=== PATIENT | female | born 1970 | race Caucasian/White ===

== ENCOUNTER → 2017-05-09 | Outpatient (CLI) | payer MEDICARE ==
--- NOTE | 2017-05-10 10:08 | MM ---
Reason for exam: screening (asymptomatic). Last mammogram was performed 2 years and 8 months ago. History: Patient is nulliparous. Family history of breast cancer in mother. Taking hormonal contraceptives for 25 years beginning at age 16. Physical Findings: A clinical breast exam by your physician is recommended on an annual basis and results should be correlated with mammographic findings. MG 3D Screening Mammo W/Cad Bilateral CC and MLO view(s) were taken. Prior study comparison: September 09, 2014, bilateral MG diagnostic mammo w CAD ZAYRA. February 23, 2012, bilateral digital screening mammo w/CAD. There are scattered fibroglandular densities. No significant changes when compared with prior studies. ASSESSMENT: Benign, BI-RAD 2 RECOMMENDATION: Routine screening mammogram of both breasts in 1 year.
== END | disposition home or self-care (01) ==
LOC: RADMAMWWP 15:22
PROVIDERS: ATTEND Family Medicine
DX: Z12.31 Encounter for screening mammogram for malignant neoplasm of breast (principal)
CPT/HCPCS: 77063; G0202

== ENCOUNTER → 2018-05-21 | Outpatient (CLI) | payer MEDICARE ==
--- NOTE | 2018-05-22 14:10 | MM ---
Reason for exam: screening (asymptomatic). Last mammogram was performed 1 year ago. History: Patient is nulliparous. Family history of breast cancer in mother. Taking hormonal contraceptives for 25 years beginning at age 16. Physical Findings: A clinical breast exam by your physician is recommended on an annual basis and results should be correlated with mammographic findings. MG Screening Mammo w CAD Bilateral CC and MLO view(s) were taken. Prior study comparison: May 09, 2017, bilateral MG 3d screening mammo w/cad. September 09, 2014, bilateral MG diagnostic mammo w CAD ZAYRA. There are scattered fibroglandular densities. No significant changes when compared with prior studies. ASSESSMENT: Benign, BI-RAD 2 RECOMMENDATION: Routine screening mammogram of both breasts in 1 year.
== END ==
LOC: RADMAMWWP 16:08
PROVIDERS: ATTEND Family Medicine
DX: Z12.31 Encounter for screening mammogram for malignant neoplasm of breast (principal)
CPT/HCPCS: 77067

== ENCOUNTER 2021-01-03 14:32 | Inpatient (IN) | payer MEDICARE ==
[2021-01-03 14:40] LABS: Glucose,Whole Blood 316 mg/dL (75-99)
[2021-01-03 14:43] VITALS: TEMP 96.9
[2021-01-03] MEDS ORDERED: SODIUM CHLORIDE 0.9% 1,000 ML IV STA (14:44)
[2021-01-03] MEDS ORDERED: VANCOMYCIN IV PER PHARMACY 1 EACH MISC MISCELLANE PRN (14:51)
[2021-01-03] MEDS ORDERED: PIPERACILLIN-TAZOBACTAM 3.375 GM in SODIUM CHLORIDE 0.9% 100 ML IVPB STA (14:51)
--- NOTE | 2021-01-03 14:52 | XR ---
EXAMINATION TYPE: XR chest 1V DATE OF EXAM: 01/03/2021 COMPARISON: 01/06/2015 HISTORY: Shortness of breath TECHNIQUE: Single frontal view of the chest is obtained. FINDINGS: Diffuse interstitial pattern with patchy areas of bilateral consolidation more pronounced on the left. Tiny bilateral effusion suspected. No pneumothorax. Heart size normal. IMPRESSION: 1. Diffuse pleural-parenchymal changes correlate for diffuse pneumonia, ARDS or pulmonary edema.
--- NOTE | 2021-01-03 14:53 | ED ---
SOB HPI - General Source: patient, EMS, RN notes reviewed Mode of arrival: EMS Limitations: no limitations, altered mental status (slow to respond, difficulty answering questions) - History of Present Illness MD Complaint: shortness of breath -: days(s) (2) Known History Of: diabetes, other (htn, GERD) Treatments Prior to Arrival: oxygen (iv) - Related Data Home Oxygen Therapy: No <Wu Crenshaw - Last Filed: 01/03/21 15:39> <Magaly Dinero - Last Filed: 01/03/21 17:34> - General Chief Complaint: Shortness of Breath Stated Complaint: High Blood Sugar Time Seen by Provider: 01/03/21 14:33 - History of Present Illness Initial Comments: 50-year-old white female patient brought in by EMS from [email or web address] with complaints of shortness of breath for 2 days. Patient to Completing 44, oxygen saturation 86% on room air, heart rate 129, blood pressure 131/94, patient with cyanosis to bilateral fingers. Patient was slow to answer questions, states short of breath for 2 days. Patient states fiancee took her to [facility] today. EMS states glucose was high on the monitor at [facility] and also high on their machine. (Wu Crenshaw) - Related Data Home Medications Medication Instructions Recorded Confirmed ARIPiprazole [Abilify] 10 mg PO DAILY 12/10/14 01/05/15 DULoxetine HCL [Cymbalta] 60 mg PO BID 12/10/14 01/05/15 Loratadine [Claritin] 10 mg PO DAILY 12/10/14 01/05/15 Omeprazole [PriLOSEC] 20 mg PO AC-SUPPER 12/10/14 01/05/15 Simvastatin [Zocor] 40 mg PO HS 12/10/14 01/05/15 atenoloL [Tenormin] 25 mg PO DAILY 12/10/14 01/05/15 Levothyroxine Sodium [Synthroid] 25 mcg PO DAILY 01/05/15 01/05/15 Multivitamin with Iron [Daily 1 tab PO DAILY 01/05/15 01/05/15 Multivitamin with Iron] Previous Rx's Medication Instructions Recorded Cyclobenzaprine [Flexeril] 10 mg PO TID #14 tab 12/10/14 Ibuprofen [Motrin] 800 mg PO Q6HR PRN #20 tab 12/10/14 Allergies Allergy/AdvReac Type Severity Reaction Status Date / Time Sulfa (Sulfonamide Allergy Rash/Hives, Verified 01/05/15 20:45 Antibiotics) ITCHING sulfasalazine Allergy RASH/HIVES, Verified 01/05/15 20:45 ITCHING Review of Systems ROS Other: All systems not noted in ROS Statement are negative. <Wu Crenshaw - Last Filed: 01/03/21 15:39> ROS Other: All systems not noted in ROS Statement are negative. <Magaly Dinero P - Last Filed: 01/03/21 17:34> ROS Statement: Those systems with pertinent positive or pertinent negative responses have been documented in the HPI. Past Medical History Past Medical History: Diabetes Mellitus, GERD/Reflux, Hyperlipidemia, Hypertens ion, Thyroid Disorder History of Any Multi-Drug Resistant Organisms: None Reported Additional Past Surgical History / Comment(s): bunions removed Past Anesthesia/Blood Transfusion Reactions: No Reported Reaction Past Psychological History: Anxiety, Bipolar, Depression Smoking Status: Never smoker Past Alcohol Use History: None Reported Past Drug Use History: None Reported - Past Family History Mother Family Medical History: Hypertension Additional Family Medical History / Comment(s): breast ca Father Additional Family Medical History / Comment(s): "chest cancer" <Wu Crenshaw - Last Filed: 01/03/21 15:39> General Exam Limitations: no limitations, altered mental status (slow to respond) General appearance: alert, lethargic, in distress Head exam: Present: atraumatic, normocephalic, normal inspection Eye exam: Present: normal appearance, EOMI. Absent: conjunctival injection, periorbital swelling, periorbital tenderness ENT exam: Present: other (lips cracked and bleeding, dried blood noted on lower right teeth) Respiratory exam: Present: respiratory distress, rhonchi, decreased breath sounds. Absent: normal lung sounds bilaterally, wheezes, chest wall tenderness, prolonged expiratory (RR 44) Cardiovascular Exam: Present: tachycardia, normal heart sounds. Absent: JVD GI/Abdominal exam: Present: soft, normal bowel sounds. Absent: distended, tenderness, guarding, rebound, rigid Extremities exam: Present: other (radial pulses present bilaterally). Absent: normal capillary refill (fingers of both hands cyanotic) Back exam: Present: normal inspection. Absent: tenderness, CVA tenderness (R), CVA tenderness (L), rash noted Neurological exam: Present: alert Psychiatric exam: Present: normal affect, normal mood. Absent: agitated, anxious, flat affect, manic Skin exam: Present: warm, dry, cyanosis (fingers b/l ), pallor. Absent: normal color, rash, diaphoretic <Wu Crenshaw - Last Filed: 01/03/21 15:39> Course - Reevaluation(s) Time: 15:04 <Wu Crenshaw - Last Filed: 01/03/21 15:39> Vital Signs 01/03/21 01/03/21 14:33 16:24 Temperature 96.9 F L Pulse Rate 129 H 118 H Respiratory 28 H 30 H Rate Blood Pressure 131/94 142/98 O2 Sat by Pulse 86 L 95 Oximetry - Reevaluation(s) Reevaluation #1: 01/03/21 15:04 Dr. Dinero at bedside, patient placed on BiPAP, oxygen saturation is increased to 96%. (Wu Crenshaw) Medical Decision Making - Lab Data Result diagrams: 01/03/21 14:55 01/03/21 14:55 - EKG Data -: EKG Interpreted by Me (also Dr Dinero) EKG shows normal: sinus rhythm, intervals (Sinus tachycardia with a rate of 126, MN interval 0.124, QRS 0.76, QTC 0.43) <Wu Crenshaw - Last Filed: 01/03/21 15:39> - Lab Data Result diagrams: 01/03/21 14:55 01/03/21 14:55 <Magaly Dinero - Last Filed: 01/03/21 17:34> - Medical Decision Making Single view of the chest shows diffuse pleural parenchymal changes with diffuse pneumonia, ards or pulmonary edema. Lactic acid 3.2 patient received 1 L bolus 0.9 normal saline. Potassium 5.0, creatinine 1.34 compared to a creatinine of 0.78 on 01/06/2015 showing acute kidney injury today. WBC count of 7.6 with no bands. (Wu Crenshaw) patient seen and evaluated, history is limited due to patient's respiratory distress. Patient was placed on BiPAP. Oxygenation improved. Patient is COVID positive. Labs are consistent with COVID including elevated d-dimer. Due to being on BiPAP at this time patient not stable for computed tomography scan we will treat elevated d-dimer with IV Lovenox. She will receive Decadron 4 COVID 19. Patient will be admitted Patient care was discussed with Dr. Yeh who accepts with admission consult pulmonology (Magaly Dinero) - Lab Data Lab Results 01/03/21 01/03/21 01/03/21 Range/Units 14:38 14:47 14:55 WBC 7.6 (3.8-10.6) k/uL RBC 4.65 (3.80-5.40) m/uL Hgb 15.3 (11.4-16.0) gm/dL Hct 44.3 (34.0-46.0) % MCV 95.3 (80.0-100.0) fL MCH 32.9 (25.0-35.0) pg MCHC 34.5 (31.0-37.0) g/dL RDW 13.1 (11.5-15.5) % Plt Count 106 L (150-450) k/uL MPV 8.4 Neutrophils % 89 % Lymphocytes % 6 % Monocytes % 2 % Eosinophils % 0 % Basophils % 0 % Neutrophils # 6.8 (1.3-7.7) k/uL Lymphocytes # 0.5 L (1.0-4.8) k/uL Monocytes # 0.2 (0-1.0) k/uL Eosinophils # 0.0 (0-0.7) k/uL Basophils # 0.0 (0-0.2) k/uL PT (9.0-12.0) sec INR (<1.2) APTT (22.0-30.0) sec D-Dimer (<0.60) mg/L FEU Sodium (137-145) mmol/L Potassium (3.5-5.1) mmol/L Chloride (98-107) mmol/L Carbon Dioxide (22-30) mmol/L Anion Gap mmol/L BUN (7-17) mg/dL Creatinine (0.52-1.04) mg/dL Est GFR (CKD-EPI)AfAm (>60 ml/min/1.73 sqM) Est GFR (CKD-EPI)NonAf (>60 ml/min/1.73 sqM) Glucose (74-99) mg/dL POC Glucose (mg/dL) 316 H (75-99) mg/dL POC Glu Manager Country ID Kathrin Henning Lactic Ac Sepsis Rflx Plasma Lactic Acid Rigoberto (0.7-2.0) mmol/L Calcium (8.4-10.2) mg/dL Magnesium (1.6-2.3) mg/dL Total Bilirubin (0.2-1.3) mg/dL AST (14-36) U/L ALT (4-34) U/L Alkaline Phosphatase (38-126) U/L Troponin I (0.000-0.034) ng/mL NT-Pro-B Natriuret Pep pg/mL Total Protein (6.3-8.2) g/dL Albumin (3.5-5.0) g/dL Coronavirus (PCR) Detected A (Not Detectd) 01/03/21 01/03/21 01/03/21 Range/Units 14:55 14:55 14:55 WBC (3.8-10.6) k/uL RBC (3.80-5.40) m/uL Hgb (11.4-16.0) gm/dL Hct (34.0-46.0) % MCV (80.0-100.0) fL MCH (25.0-35.0) pg MCHC (31.0-37.0) g/dL RDW (11.5-15.5) % Plt Count (150-450) k/uL MPV Neutrophils % % Lymphocytes % % Monocytes % % Eosinophils % % Basophils % % Neutrophils # (1.3-7.7) k/uL Lymphocytes # (1.0-4.8) k/uL Monocytes # (0-1.0) k/uL Eosinophils # (0-0.7) k/uL Basophils # (0-0.2) k/uL PT (9.0-12.0) sec INR (<1.2) APTT (22.0-30.0) sec D-Dimer (<0.60) mg/L FEU Sodium 136 L (137-145) mmol/L Potassium 5.0 (3.5-5.1) mmol/L Chloride 103 (98-107) mmol/L Carbon Dioxide 20 L (22-30) mmol/L Anion Gap 13 mmol/L BUN 33 H (7-17) mg/dL Creatinine 1.34 H (0.52-1.04) mg/dL Est GFR (CKD-EPI)AfAm 54 (>60 ml/min/1.73 sqM) Est GFR (CKD-EPI)NonAf 47 (>60 ml/min/1.73 sqM) Glucose 560 H* (74-99) mg/dL POC Glucose (mg/dL) (75-99) mg/dL POC Glu Manager Country ID Lactic Ac Sepsis Rflx Plasma Lactic Acid Rigoberto 3.2 H* (0.7-2.0) mmol/L Calcium 8.3 L (8.4-10.2) mg/dL Magnesium 1.9 (1.6-2.3) mg/dL Total Bilirubin 0.6 (0.2-1.3) mg/dL AST 43 H (14-36) U/L ALT 26 (4-34) U/L Alkaline Phosphatase 166 H (38-126) U/L Troponin I 0.014 (0.000-0.034) ng/mL NT-Pro-B Natriuret Pep pg/mL Total Protein 6.4 (6.3-8.2) g/dL Albumin 3.2 L (3.5-5.0) g/dL Coronavirus (PCR) (Not Detectd) 01/03/21 01/03/21 01/03/21 Range/Units 14:55 15:28 15:43 WBC (3.8-10.6) k/uL RBC (3.80-5.40) m/uL Hgb (11.4-16.0) gm/dL Hct (34.0-46.0) % MCV (80.0-100.0) fL MCH (25.0-35.0) pg MCHC (31.0-37.0) g/dL RDW (11.5-15.5) % Plt Count (150-450) k/uL MPV Neutrophils % % Lymphocytes % % Monocytes % % Eosinophils % % Basophils % % Neutrophils # (1.3-7.7) k/uL Lymphocytes # (1.0-4.8) k/uL Monocytes # (0-1.0) k/uL Eosinophils # (0-0.7) k/uL Basophils # (0-0.2) k/uL PT 10.0 (9.0-12.0) sec INR 0.9 (<1.2) APTT 19.4 L (22.0-30.0) sec D-Dimer >34.10 H (<0.60) mg/L FEU Sodium (137-145) mmol/L Potassium (3.5-5.1) mmol/L Chloride (98-107) mmol/L Carbon Dioxide (22-30) mmol/L Anion Gap mmol/L BUN (7-17) mg/dL Creatinine (0.52-1.04) mg/dL Est GFR (CKD-EPI)AfAm (>60 ml/min/1.73 sqM) Est GFR (CKD-EPI)NonAf (>60 ml/min/1.73 sqM) Glucose (74-99) mg/dL POC Glucose (mg/dL) (75-99) mg/dL POC Glu Manager Country ID Lactic Ac Sepsis Rflx Y Plasma Lactic Acid Rigoberto (0.7-2.0) mmol/L Calcium (8.4-10.2) mg/dL Magnesium (1.6-2.3) mg/dL Total Bilirubin (0.2-1.3) mg/dL AST (14-36) U/L ALT (4-34) U/L Alkaline Phosphatase (38-126) U/L Troponin I (0.000-0.034) ng/mL NT-Pro-B Natriuret Pep 148 pg/mL Total Protein (6.3-8.2) g/dL Albumin (3.5-5.0) g/dL Coronavirus (PCR) (Not Detectd) Disposition <Wu Crenshaw - Last Filed: 01/03/21 15:39> Is patient prescribed a controlled substance at d/c from ED?: No <Magaly Dinero - Last Filed: 01/03/21 17:34> Clinical Impression: COVID-19 Disposition: ADMITTED IP TO THIS HOSP Condition: Serious Referrals: Shamar Jimenez DO [Primary Care Provider] - 1-2 days
[2021-01-03] MEDS ORDERED: VANCOMYCIN 1,250 MG in SODIUM CHLORIDE 0.9% 250 ML IVPB STA (14:55)
[2021-01-03 15:25] LABS: Albumin 3.2 g/dL (3.5-5.0); Calcium 8.3 mg/dL (8.4-10.2); Magnesium 1.9 mg/dL (1.6-2.3); Total Bilirubin 0.6 mg/dL (0.2-1.3); Total Protein 6.4 g/dL (6.3-8.2)
[2021-01-03 15:36] LABS: Basophils % (A) 0 %; Eosinophils % (A) 0 %; HCT 44.3 % (34.0-46.0); HGB 15.3 gm/dL (11.4-16.0); Lymphocytes # (A) 0.5 k/uL (1.0-4.8); Lymphocytes % (A) 6 %; MCH 32.9 pg (25.0-35.0); MCHC 34.5 g/dL (31.0-37.0); MCV 95.3 fL (80.0-100.0); Mean Platelet Volume 8.4; Monocytes # (A) 0.2 k/uL (0-1.0); Monocytes % (A) 2 %; Neutrophils # (A) 6.8 k/uL (1.3-7.7); Neutrophils % (A) 89 %; Platelet Count 106 k/uL (150-450); RBC 4.65 m/uL (3.80-5.40); RDW 13.1 % (11.5-15.5); WBC 7.6 k/uL (3.8-10.6)
[2021-01-03] MEDS ORDERED: SODIUM CHLORIDE 0.9% 1,000 ML IV ONE (16:07)
[2021-01-03] MEDS ORDERED: INSULIN REGULAR 100 UNIT/ML VIAL (IV) SQ ONE (16:12)
[2021-01-03 16:51] LABS: INR 0.9 (<1.2)
[2021-01-03 17:00] LABS: Partial Thromboplastin Time 19.4 sec (22.0-30.0)
[2021-01-03] MEDS: SODIUM CHLORIDE 0.9% 1,000 ML IV SCH (17:22)
[2021-01-03] MEDS ORDERED: ACETAMINOPHEN TAB 325 MG TAB PO PRN (17:27)
[2021-01-03] MEDS ORDERED: NALOXONE 0.4 MG/ML 1 ML VIAL IV PRN (17:27)
[2021-01-03] MEDS ORDERED: ONDANSETRON 4 MG/2 ML VIAL IVP PRN (17:27)
[2021-01-03] MEDS ORDERED: DEXAMETHASONE SOD PHOSPHATE 10 MG/ML 1 ML VIAL IV SCH (17:30)
[2021-01-03] MEDS ORDERED: INSULIN REGULAR BOLUS (FROM DRIP BAG) IV ONE (19:53)
[2021-01-03] MEDS ORDERED: INSULIN REGULAR 100 UNIT in SODIUM CHLORIDE 0.9% 100 ML IV SCH (20:00)
[2021-01-03 20:14] LABS: Glucose,Whole Blood 239 mg/dL (75-99)
[2021-01-03] MEDS ORDERED: INSULIN ASPART (NovoLOG) 100 UNIT/ML VIAL SQ SCH (21:00)
[2021-01-03] MEDS ORDERED: DULoxetine HCL 60 MG CAPSULE.DR PO SCH (21:00)
[2021-01-03] MEDS ORDERED: ENOXAPARIN 80 MG/0.8 ML SYRINGE SQ SCH (21:00)
[2021-01-03] MEDS ORDERED: ATORVASTATIN 20 MG TAB PO SCH (21:00)
[2021-01-03] MEDS ORDERED: NON FORMULARY DRUG (Omeprazole [Prilosec] 20 MG Capsule.Dr) PO SCH (21:00)
[2021-01-03 21:37] LABS: Glucose,Whole Blood 187 mg/dL (75-99)
[2021-01-04] MEDS ORDERED: LORazepam 2 MG/ML INJ IV STA (01:33)
[2021-01-04] MEDS ORDERED: ALBUTEROL HFA INHALER INHALATION STA (01:42)
[2021-01-04 02:06] LABS: ABG Base Excess -3.3 mmol/L; ABG HCO3 24 mmol/L (21-25); ABG PCO2 59 mmHg (35-45); ABG PH 7.22 (7.35-7.45); ABG TCO2 26 mmol/L (19-24); Allen Test Performed? Yes
[2021-01-04] MEDS: SODIUM CHLORIDE 0.9% 1,000 ML IV SCH (02:09)
[2021-01-04 02:21] LABS: ABG PO2 43 mmHg (83-108)
[2021-01-04] MEDS ORDERED: MIDAZOLAM 1 MG/ML 5 ML VIAL IV STA ×3 (02:44→03:11)
[2021-01-04] MEDS ORDERED: SUCCINYLCHOLINE CHLORIDE VIAL 200 MG/10 ML VIAL IV STA (02:46)
--- NOTE | 2021-01-04 02:47 | ED ---
Medical Decision Making - Medical Decision Making 50 female to the ER for evaluation patient has severe coronavirus with need to be intubated secondary significant deterioration mental status and increased respiratory rate work of breathing, patient needed to be intubated for multiple reasons, patient was intubated successfully - Lab Data Result diagrams: 01/03/21 14:55 01/03/21 14:55 Lab Results 01/03/21 01/03/21 01/03/21 Range/Units 14:38 14:47 14:55 WBC 7.6 (3.8-10.6) k/uL RBC 4.65 (3.80-5.40) m/uL Hgb 15.3 (11.4-16.0) gm/dL Hct 44.3 (34.0-46.0) % MCV 95.3 (80.0-100.0) fL MCH 32.9 (25.0-35.0) pg MCHC 34.5 (31.0-37.0) g/dL RDW 13.1 (11.5-15.5) % Plt Count 106 L (150-450) k/uL MPV 8.4 Neutrophils % 89 % Lymphocytes % 6 % Monocytes % 2 % Eosinophils % 0 % Basophils % 0 % Neutrophils # 6.8 (1.3-7.7) k/uL Lymphocytes # 0.5 L (1.0-4.8) k/uL Monocytes # 0.2 (0-1.0) k/uL Eosinophils # 0.0 (0-0.7) k/uL Basophils # 0.0 (0-0.2) k/uL PT (9.0-12.0) sec INR (<1.2) APTT (22.0-30.0) sec D-Dimer (<0.60) mg/L FEU Sodium (137-145) mmol/L Potassium (3.5-5.1) mmol/L Chloride (98-107) mmol/L Carbon Dioxide (22-30) mmol/L Anion Gap mmol/L BUN (7-17) mg/dL Creatinine (0.52-1.04) mg/dL Est GFR (CKD-EPI)AfAm (>60 ml/min/1.73 sqM) Est GFR (CKD-EPI)NonAf (>60 ml/min/1.73 sqM) Glucose (74-99) mg/dL POC Glucose (mg/dL) 316 H (75-99) mg/dL POC Glu Elastic Tape Inserter ID Kathrin Henning Lactic Ac Sepsis Rflx Plasma Lactic Acid Rigoberto (0.7-2.0) mmol/L Calcium (8.4-10.2) mg/dL Magnesium (1.6-2.3) mg/dL Total Bilirubin (0.2-1.3) mg/dL AST (14-36) U/L ALT (4-34) U/L Alkaline Phosphatase (38-126) U/L Troponin I (0.000-0.034) ng/mL NT-Pro-B Natriuret Pep pg/mL Total Protein (6.3-8.2) g/dL Albumin (3.5-5.0) g/dL Coronavirus (PCR) Detected A (Not Detectd) 01/03/21 01/03/21 01/03/21 Range/Units 14:55 14:55 14:55 WBC (3.8-10.6) k/uL RBC (3.80-5.40) m/uL Hgb (11.4-16.0) gm/dL Hct (34.0-46.0) % MCV (80.0-100.0) fL MCH (25.0-35.0) pg MCHC (31.0-37.0) g/dL RDW (11.5-15.5) % Plt Count (150-450) k/uL MPV Neutrophils % % Lymphocytes % % Monocytes % % Eosinophils % % Basophils % % Neutrophils # (1.3-7.7) k/uL Lymphocytes # (1.0-4.8) k/uL Monocytes # (0-1.0) k/uL Eosinophils # (0-0.7) k/uL Basophils # (0-0.2) k/uL PT (9.0-12.0) sec INR (<1.2) APTT (22.0-30.0) sec D-Dimer (<0.60) mg/L FEU Sodium 136 L (137-145) mmol/L Potassium 5.0 (3.5-5.1) mmol/L Chloride 103 (98-107) mmol/L Carbon Dioxide 20 L (22-30) mmol/L Anion Gap 13 mmol/L BUN 33 H (7-17) mg/dL Creatinine 1.34 H (0.52-1.04) mg/dL Est GFR (CKD-EPI)AfAm 54 (>60 ml/min/1.73 sqM) Est GFR (CKD-EPI)NonAf 47 (>60 ml/min/1.73 sqM) Glucose 560 H* (74-99) mg/dL POC Glucose (mg/dL) (75-99) mg/dL POC Glu Elastic Tape Inserter ID Lactic Ac Sepsis Rflx Plasma Lactic Acid Rigoberto 3.2 H* (0.7-2.0) mmol/L Calcium 8.3 L (8.4-10.2) mg/dL Magnesium 1.9 (1.6-2.3) mg/dL Total Bilirubin 0.6 (0.2-1.3) mg/dL AST 43 H (14-36) U/L ALT 26 (4-34) U/L Alkaline Phosphatase 166 H (38-126) U/L Troponin I 0.014 (0.000-0.034) ng/mL NT-Pro-B Natriuret Pep pg/mL Total Protein 6.4 (6.3-8.2) g/dL Albumin 3.2 L (3.5-5.0) g/dL Coronavirus (PCR) (Not Detectd) 01/03/21 01/03/21 01/03/21 Range/Units 14:55 15:28 15:43 WBC (3.8-10.6) k/uL RBC (3.80-5.40) m/uL Hgb (11.4-16.0) gm/dL Hct (34.0-46.0) % MCV (80.0-100.0) fL MCH (25.0-35.0) pg MCHC (31.0-37.0) g/dL RDW (11.5-15.5) % Plt Count (150-450) k/uL MPV Neutrophils % % Lymphocytes % % Monocytes % % Eosinophils % % Basophils % % Neutrophils # (1.3-7.7) k/uL Lymphocytes # (1.0-4.8) k/uL Monocytes # (0-1.0) k/uL Eosinophils # (0-0.7) k/uL Basophils # (0-0.2) k/uL PT 10.0 (9.0-12.0) sec INR 0.9 (<1.2) APTT 19.4 L (22.0-30.0) sec D-Dimer >34.10 H (<0.60) mg/L FEU Sodium (137-145) mmol/L Potassium (3.5-5.1) mmol/L Chloride (98-107) mmol/L Carbon Dioxide (22-30) mmol/L Anion Gap mmol/L BUN (7-17) mg/dL Creatinine (0.52-1.04) mg/dL Est GFR (CKD-EPI)AfAm (>60 ml/min/1.73 sqM) Est GFR (CKD-EPI)NonAf (>60 ml/min/1.73 sqM) Glucose (74-99) mg/dL POC Glucose (mg/dL) (75-99) mg/dL POC Glu Elastic Tape Inserter ID Lactic Ac Sepsis Rflx Y Plasma Lactic Acid Rigoberto (0.7-2.0) mmol/L Calcium (8.4-10.2) mg/dL Magnesium (1.6-2.3) mg/dL Total Bilirubin (0.2-1.3) mg/dL AST (14-36) U/L ALT (4-34) U/L Alkaline Phosphatase (38-126) U/L Troponin I (0.000-0.034) ng/mL NT-Pro-B Natriuret Pep 148 pg/mL Total Protein (6.3-8.2) g/dL Albumin (3.5-5.0) g/dL Coronavirus (PCR) (Not Detectd) - Radiology Data Radiology results: report reviewed (CXR is positive for ET tube), image reviewed Critical Care Time Critical Care Time: Yes Total Critical Care Time: 65 Disposition Clinical Impression: COVID-19, Acute respiratory failure, Hypoxia, Pneumonia due to coronavirus disease 2019, ARDS (adult respiratory distress syndrome) Disposition: ADMITTED IP TO THIS HOSP Condition: Critical Is patient prescribed a controlled substance at d/c from ED?: No
--- NOTE | 2021-01-04 03:07 | XR ---
EXAM: XR Chest, 1 View CLINICAL HISTORY: ITS.REASON XR Reason: placement TECHNIQUE: Frontal view of the chest. COMPARISON: 01/03/21 1447 FINDINGS: Lungs: Worsening bilateral opacities. Pleural space: Small bilateral pleural effusions. No pneumothorax. Heart: Not well evaluated. Mediastinum: Not well evaluated. Bones/joints: No acute osseous abnormality. Tubes, lines and devices: Endotracheal tube tip projects approximately 1.9 cm above the casper. IMPRESSION: 1. Endotracheal tube tip projects approximately 1.9 cm above the casper. 2. Worsening bilateral opacities. 3. Small bilateral pleural effusions. No pneumothorax.
[2021-01-04 03:08] VITALS: BP 94/69
[2021-01-04] MEDS ORDERED: fentaNYL (PF) 50 MCG/ML 2 ML AMP IVP PRN (03:11)
[2021-01-04] MEDS ORDERED: fentaNYL (PF) 1,000 MCG in SODIUM CHLORIDE 0.9% 80 ML IV SCH (03:15)
[2021-01-04] MEDS ORDERED: MIDAZOLAM HCL 50 MG in SODIUM CHLORIDE 0.9% 40 ML IV SCH (03:15)
[2021-01-04 03:24] VITALS: PULSE 80; RESP 26
[2021-01-04] MEDS ORDERED: SODIUM BICARB 8.4% 50 ML SYR (1 MEQ/ML) ONE (03:30)
[2021-01-04] MEDS ORDERED: EPINEPHrine 10 ML SYRINGE (0.1 MG/ML) ONE (03:30)
[2021-01-04] MEDS ORDERED: ATROPINE SULFATE 0.1 MG/ML 10ML SYRINGE ONE (03:30)
--- NOTE | 2021-01-04 03:38 | XR ---
EXAM: XR Chest, 1 View CLINICAL HISTORY: placement TECHNIQUE: Frontal view of the chest. COMPARISON: No relevant prior studies available. FINDINGS: Lungs: Persistent diffuse bilateral opacities. Pleural space: Small bilateral pleural effusions. No pneumothorax. Heart: Stable. Mediastinum: Stable. Bones/joints: No acute osseous abnormality. Tubes, lines and devices: Esophagogastric tube tip projects over the proximal stomach, its sidehole projects over the distal thoracic esophagus. Endotracheal tube tip projects approximately 2.7 cm above the casper. IMPRESSION: 1. Esophagogastric tube tip projects over the proximal stomach, its sidehole projects over the distal thoracic esophagus. Consider advancement by 10 cm and repeat abdominal radiograph to confirm tube position, prior to use. 2. Endotracheal tube tip projects approximately 2.7 cm above the casper. No pneumothorax.
[2021-01-04 03:48] LABS: Glucose,Whole Blood 271 mg/dL (75-99)
--- NOTE | 2021-01-04 06:01 | P.EN ---
code blue activated for cardiopulmonary arrest PEA CPR initiated following ACLS protocol patient was having brief ROSC but very short lived for about 2 min at a time and then she bradycardia and loses pulse. she was given multiple doses of epi, bicarb. then was started on epi drip at 10 mcg / min IV. intubated. in total patient was coded for about 40 minutes , continued to have PEA, no shockable rhythm identified. patient eventually . please refer to code blue documentation for full details of events. patient has dilated pupils , no corneal reflex, no audible heart sounds. I called patient bret. who arrived to the hospital , I met with him in the family room , updated him and answered all questions primary team paged, await call back 50 minutes spent in providing critical care service
[2021-01-04] MEDS ORDERED: INSULIN ASPART (NovoLOG) 100 UNIT/ML VIAL SQ SCH (07:30)
[2021-01-04] MEDS ORDERED: PANTOPRAZOLE 40 MG/10 ML VIAL IV SCH (09:00)
[2021-01-04] MEDS ORDERED: ARIPiprazole 10 MG TAB PO SCH (09:00)
[2021-01-04] MEDS ORDERED: lisinopriL 5 MG TAB PO SCH (09:00)
[2021-01-04] MEDS ORDERED: EZETIMIBE 10 MG TAB PO SCH (09:00)
[2021-01-04] MEDS ORDERED: VANCOMYCIN 1,250 MG in SODIUM CHLORIDE 0.9% 250 ML IVPB SCH (09:00)
--- NOTE | 2021-01-06 23:38 | P.HPIM ---
History of Present Illness H&P Date: 01/03/21 Chief Complaint: Short of breath Patient was admitted from the ER for shortness of breath. Diagnoses of: COVID 19 pneumonia. Patient requiring BiPAP. From ER doctor Sohail was consulted. Nurse had called me the day that patient was still requiring BiPAP short of breath. Told him to contact Dr. Sauceda from critical care because of respiratory compromise. Later the patient had a respiratory arrest and succumbed to the same. Past Medical History Past Medical History: Diabetes Mellitus, GERD/Reflux, Hyperlipidemia, Hypertension, Thyroid Disorder History of Any Multi-Drug Resistant Organisms: None Reported Additional Past Surgical History / Comment(s): bunions removed Past Anesthesia/Blood Transfusion Reactions: No Reported Reaction Past Psychological History: Anxiety, Bipolar, Depression Smoking Status: Never smoker Past Alcohol Use History: None Reported Past Drug Use History: None Reported - Past Family History Mother Family Medical History: Hypertension Additional Family Medical History / Comment(s): breast ca Father Additional Family Medical History / Comment(s): "chest cancer" Medications and Allergies Home Medications Medication Instructions Recorded Confirmed Type ARIPiprazole [Abilify] 10 mg PO DAILY 12/10/14 01/03/21 History DULoxetine HCL [Cymbalta] 60 mg PO BID 12/10/14 01/03/21 History Omeprazole [PriLOSEC] 20 mg PO BID 12/10/14 01/03/21 History Simvastatin [Zocor] 40 mg PO HS 12/10/14 01/03/21 History Ezetimibe [Zetia] 10 mg PO DAILY 01/03/21 01/03/21 History Norgestimate-Ethinyl Estradiol 1 tab PO DAILY 01/03/21 01/03/21 History [Tri-Sprintec Tablet] lisinopriL [Zestril] 5 mg PO DAILY 01/03/21 01/03/21 History metFORMIN HCL ER [Glucophage Xr] 500 mg PO DAILY 01/03/21 01/03/21 History Allergies Allergy/AdvReac Type Severity Reaction Status Date / Time Sulfa (Sulfonamide Allergy Rash/Hives, Verified 01/03/21 17:50 Antibiotics) ITCHING sulfasalazine Allergy RASH/HIVES, Verified 01/03/21 17:50 ITCHING Results CBC & Chem 7: 01/03/21 14:55 01/03/21 14:55 Labs: Microbiology - Last 24 Hours (Table) 01/03/21 14:51 Blood Culture - Preliminary Blood No Growth after 72 hours
--- NOTE | 2021-01-06 23:41 | P.DS ---
Providers Date of admission: 01/03/21 17:27 Expected date of discharge: 01/04/21 (Patient ) Attending physician: Colin Yeh Consults: 01/03/21 17:28 Consult Physician Urgent Consulting Provider: Triston Sauceda Consult Reason/Comments: COVID on bipap Do you want consulting provider notified?: Already Contacted Primary care physician: Shamar Jimenez [facility] Course: Chief Complaint: Short of breath Patient was admitted from the ER for shortness of breath. Diagnoses of: COVID 19 pneumonia. Patient requiring BiPAP. From ER doctor Sohail was consulted. Nurse had called me the day that patient was still requiring BiPAP short of breath. Told him to contact Dr. Sauceda from critical care because of respiratory compromise. Patient was not seen by me.(Hospital was all full with overflowing/holding patients in the ER.) Later the patient had a respiratory arrest and succumbed to the same. Cause of : COVID 19 pneumonia Plan - Discharge Summary New Discharge Prescriptions: No Action Simvastatin [Zocor] 40 mg PO HS Omeprazole [PriLOSEC] 20 mg PO BID ARIPiprazole [Abilify] 10 mg PO DAILY DULoxetine HCL [Cymbalta] 60 mg PO BID metFORMIN HCL ER [Glucophage Xr] 500 mg PO DAILY lisinopriL [Zestril] 5 mg PO DAILY Norgestimate-Ethinyl Estradiol [Tri-Sprintec Tablet] 1 tab PO DAILY Ezetimibe [Zetia] 10 mg PO DAILY Discharge Medication List ARIPiprazole [Abilify] 10 mg PO DAILY 12/10/14 [History] DULoxetine HCL [Cymbalta] 60 mg PO BID 12/10/14 [History] Omeprazole [PriLOSEC] 20 mg PO BID 12/10/14 [History] Simvastatin [Zocor] 40 mg PO HS 12/10/14 [History] Ezetimibe [Zetia] 10 mg PO DAILY 01/03/21 [History] Norgestimate-Ethinyl Estradiol [Tri-Sprintec Tablet] 1 tab PO DAILY 01/03/21 [History] lisinopriL [Zestril] 5 mg PO DAILY 01/03/21 [History] metFORMIN HCL ER [Glucophage Xr] 500 mg PO DAILY 01/03/21 [History] Follow up Appointment(s)/Referral(s): Shamar Jimenez DO [Primary Care Provider] - 1-2 days Discharge Disposition: - Preliminary Cause of Preliminary Cause of : COVID 19 pneumonia
== END 2021-01-04 05:53 | disposition expired | DRG 208 ==
LOC: EC 14:32 → 3SCARD 17:27 → 2SICU 01-04 02:04
PROVIDERS: ADMIT Hospitalist; ATTEND Hospitalist
PROC: 5A09357 Assistance with Respiratory Ventilation, Less than 24 Consecutive Hours, Continuous Positive Airway Pressure (ICD-10-PCS; 2021-01-03)
PROC: 5A1935Z Respiratory Ventilation, Less than 24 Consecutive Hours (ICD-10-PCS; principal; 2021-01-04)
PROC: 0BH17EZ Insertion of Endotracheal Airway into Trachea, Via Natural or Artificial Opening (ICD-10-PCS; 2021-01-04)
PROC: 5A12012 Performance of Cardiac Output, Single, Manual (ICD-10-PCS; 2021-01-04)
PROC: 3E033XZ Introduction of Vasopressor into Peripheral Vein, Percutaneous Approach (ICD-10-PCS; 2021-01-04)
DX: U07.1 COVID-19 (principal); J12.82 Pneumonia due to coronavirus disease 2019; J80 Acute respiratory distress syndrome; N17.9 Acute kidney failure, unspecified; I46.8 Cardiac arrest due to other underlying condition; E11.65 Type 2 diabetes mellitus with hyperglycemia; F31.9 Bipolar disorder, unspecified; E78.5 Hyperlipidemia, unspecified; K21.9 Gastro-esophageal reflux disease without esophagitis; I10 Essential (primary) hypertension; E07.9 Disorder of thyroid, unspecified; F41.9 Anxiety disorder, unspecified; Z79.84 Long term (current) use of oral hypoglycemic drugs; Z79.899 Other long term (current) drug therapy; Z79.890 Hormone replacement therapy; Z87.39 Personal history of other diseases of the musculoskeletal system and connective tissue; Z98.890 Other specified postprocedural states; Z88.2 Allergy status to sulfonamides; Z80.3 Family history of malignant neoplasm of breast; Z82.49 Family history of ischemic heart disease and other diseases of the circulatory system; Z80.8 Family history of malignant neoplasm of other organs or systems
CPT/HCPCS: 36415; 36600; 71045; 80053; 82805; 83605; 83735; 83880; 84484; 85025; 85379; 85610; 85730; 87040; 87635; 92950; 93005; 94002; 94640; 94660; 96365; 96372; 96375; 99285